=== PATIENT | female | born 2000 | race Caucasian/White ===

== ENCOUNTER → 2021-11-15 | Day surgery (SDC) | payer OTHER ==
[~2021-11-15] VITALS: Ht 157.5 cm; Wt 54.0 kg
[~2021-11-15] MED LIST: DULO60CA7 PO; ELAG150T PO; GABA600T7 PO; IV RINGERS,LACTATED 1000ML 1,000 ML IV SCH; LIDOCAINE 2% PF 5 ML VIAL. ONE; PROPOFOL 10 MG/ML (20ML) VIAL. IV ONE
[2021-11-15 12:53] VITALS: BP 106/56
--- NOTE | 2021-11-15 14:32 | PDOC4 ---
PROCEDURE Procedure Colonoscopy/EGD with biopsies Indication: Upper abd pain/blood in stool. Meds: per anesthesia Findings: BRITTANI--normal --Scope advanced to TI. Prep adequate. Mucosa normal. TI normal. No diverticula, polyps, masses, etc. IH's on retroflex. E--Less than grade A at 39cm. G--Bilious fluid, suctioned. Pre-pyloric mild diffuse erythema, biopsied. D--Attenuated folds second and third portion? Biopsied this. Otherwise normal. Jose. well. IMP: Hemorrhoids Mild esophagitis. Antral erythema, biopsied. Attenuated folds duodenum? Biopsied. REC: PPI Await biopsies. Resume home meds and diet save famotidine. F/u in 2 weeks. MARCIA CANDELARIO MD Nov 15, 2021 14:32
[2021-11-15 14:55] VITALS: BP 104/52
--- NOTE | 2021-11-16 18:11 | PATHOLOGY ---
[facility] Accession Number: [id number] . 01 Material submitted: . PART A: duodenum - DUODENAL BIOPSY PART B: stomach - ANTRUM BIOPSY . 01 Clinical history: . ABDOMINAL PAIN EGD, COLONOSCOPY . 02 Diagnosis: A. Duodenal biopsy: - No diagnostic abnormalities. . B. Gastric biopsies, antrum: - Chronic gastritis, mild. (JPM:aidan; 11/16/2021) S 11/16/2021 1347 Local . 02 Comment: Sections of the duodenal biopsy reveal segments of duodenal mucosa. Although the mucosa appeared flat at endoscopy, where best oriented, the mucosal villi within the biopsy histologically appear normal and show no sprue-like changes or significant inflammatory changes. . Sections of the gastric biopsy reveal segments of gastric antral mucosa showing congestion and mild chronic inflammation. A properly controlled immunoperoxidase stain for Helicobacter is negative for Helicobacter organisms. (JPM:aidan; 11/16/2020) . . Special stain performed: Immunoperoxidase stain for Helicobacter on B1 . 02 Electronically signed: . Gurvinder España MD, Pathologist NPI- [id number] . 01 Gross description: . A. The specimen is received in formalin, labeled "Lozano, Ria, duodenal BX". Received are 2 segments of pale antonio tissue measuring 0.5 and 0.7 cm in maximum dimensions. The specimen is entirely submitted in cassette A1. . B. The specimen is received in formalin, labeled "Lozano, Ria, antrum BX". Received are 2 segments of pale antonio tissue measuring 0.3 and 0.6 cm in maximum dimensions. The specimen is entirely submitted in cassette B1. ([facility]; 11/15/2021) NRI/NRI 11/15/[id number] Local . 02 Pathologist provided ICD-10: K29.50, R10.9, Z12.11 . 02 CPT . 118509, 245353, [id number] Specimen Comment: A courtesy copy of this report has been sent to [phone], [phone] Specimen Comment: [id number] Specimen Comment: Report sent to AND DR SOLIZ Specimen Comment: A duplicate report has been generated due to demographic updates. Performed at: 01 [facility] [place] [address] [id number] MD Maury Avitia MD Phone: [phone] Performed at: 02 [facility] [address] [place] [id number] MD Gurvinder España MD Phone: [phone]
== END | disposition home or self-care (01) ==
LOC: ENDOS 12:19
PROVIDERS: ATTEND Internal Medicine Gastroenterology
DX: K92.1 Melena (principal); R10.10 Upper abdominal pain, unspecified; R12 Heartburn; K64.0 First degree hemorrhoids; K29.50 Unspecified chronic gastritis without bleeding; K21.00 Gastro-esophageal reflux disease with esophagitis, without bleeding; K63.89 Other specified diseases of intestine; K31.89 Other diseases of stomach and duodenum; F41.9 Anxiety disorder, unspecified; F32.9 Major depressive disorder, single episode, unspecified; Z79.899 Other long term (current) drug therapy; Z98.890 Other specified postprocedural states
CPT/HCPCS: 43239; 45378; 81025; 88305; 88342; J2704